=== PATIENT | female | born 1990 | race African-American/Black ===

== ENCOUNTER 2017-03-12 11:56 | Inpatient (IN) ==
[2017-03-12 13:05] LABS: Apearance,Urine CLOUDY (Clear); Bilirubin,Urine Negative (Negative); Blood, Urine Large mg/dL (Negative); Glucose,Urine (UA) Negative (Negative); Ketones,Urine 5 mg/dL (Negative); Mucus,Urine Many /LPF (Occasional); Nitrite,Urine Negative (Negative); Protein,Urine 100 MG/DL; RBC,Urine 5309 /HPF (0-4); Urine Color Amber (Yellow); Urine Specific Gravity 1.024 (1.001-1.035); WBC,Urine 33 /HPF (0-6)
[2017-03-12 13:41] LABS: Barbiturates Screen,Urine Negative (Negative); Benzodiazepines Screen,Urine Negative (Negative); Cannabinoid Screen,Urine Negative (Negative); Opiate Screen,Urine Negative (Negative); Phencyclidine Screen,Urine Negative (Negative)
[2017-03-12] MEDS ORDERED: LACTATED RINGERS 1,000 ML IV PRN (14:15)
[2017-03-12 14:36] LABS: Basophils % 0.2 % (0.0-0.8); Eosinophils # 0.4 10*3/uL (0.0-0.87); Eosinophils % 2.3 % (0.00-10.9); Hematocrit 27.2 VOL% (35.7-47.0); Hemoglobin 8.4 GM/DL (12.0-16.0); Immature Granulocytes % 1.9 %; Immature Granulocytes Absolute 0.31 #; Lymphocytes # 2.2 10*3/uL (1.4-4.0); Mean Corpuscular HGB Conc 30.9 GM/DL (32-36); Mean Corpuscular Hemoglobin 23 PG (27-34); Mean Corpuscular Volume 74.5 FL (87-102); Mean Platelet Volume 11.6 FL (9.6-12.0); Monocytes # 1.1 10*3/uL (0.11-0.8); Monocytes % 7.1 % (1.7-12.7); NRBC # 0.06 10*3/uL; Neutrophils # 11.9 10*3/uL (1.4-7.4); Neutrophils % 74.5 % (38.7-73.9); Platelet Count 311 T/CUMM (130-400); Red Blood Count 3.65 MC/CUMM (3.8-5.5); Red Cell Distribution Width 17.4 % (9.3-17.3)
[2017-03-12 14:59] LABS: Albumin 3.2 G/DL (3.4-5.0); Bilirubin,Total 0.4 MG/DL (0.2-1.0); Osmolality,Calculated 271.7 MOS/KG (273-304); Potassium 4.7 MMOL/L (3.5-5.1); Total Protein 7.3 G/DL (6.4-8.3); Uric Acid 4.1 MG/DL (2.6-6.0)
[2017-03-12] MEDS: BETAMETH SODIUM PHOS/ACETATE 30 MG/5 ML VIAL IM SCH (14:59)
[2017-03-12] MEDS: AMPICILLIN INJ 2,000 MG in SODIUM CHLORIDE 0.9% 100 ML IV SCH ×2 (15:00→20:30)
[2017-03-12] MEDS: LACTATED RINGERS 1,000 ML IV SCH ×2 (15:04→20:30)
--- NOTE | 2017-03-12 15:15 | Ultrasound Report ---
Exam: US OB >= 14 weeks fetus Date: 03/12/2017 2:27 PM Comparison: 08/29/2016 Indication: Limited care Technique:[Multiple transabdominal real-time scans were obtained of the pelvis. Color-flow scans obtained. Ultrasound images were captured and stored.] Findings: There is a single intrauterine fetus in cephalic presentation with a heart rate 141 BPM. The posterior placenta is not low-lying in position with cervical length of 26 mm. Maternal ovaries are not identified. No measurements were obtained in the cerebellum, cisterna magna, or ventricular atria. On the survey, no definite pathology is identified in the spine, heart, stomach, kidneys, bladder, cord insertion, face, and extremities. 3 vessel cord documented. Measurements obtained are as follows: BPD 33 weeks 5 days HC 33 weeks 4 days AC 34 weeks 5 days FL 32 weeks 6 days EFW 5 lbs. 2 oz. +/- 12 ounces GP 43% ABE 119 mm. Impression: Single intrauterine fetus in the cephalic presentation at 33 weeks 5 days +/- 2 weeks 3 days with EDC 04/25/2017. EDC of prior exam 04/23/2017. Cervical length of 26 mm. Follow-up scans may be helpful for further evaluation. PROCEDURE INTERPRETED AT [facility] DEPARTMENT OF RADIOLOGY Final Report Signed by: Dr. Carrie Thompson
[2017-03-13] MEDS: AMPICILLIN INJ 2,000 MG in SODIUM CHLORIDE 0.9% 100 ML IV SCH ×3 (02:36→14:00)
[2017-03-13] MEDS: LACTATED RINGERS 1,000 ML IV SCH ×2 (05:49→18:35)
[2017-03-13] MEDS ORDERED: SODIUM CHLORIDE 0.9% 250 ML IV PRN (13:40)
[2017-03-13] MEDS: BETAMETH SODIUM PHOS/ACETATE 30 MG/5 ML VIAL IM SCH (14:00)
[2017-03-13] MEDS ORDERED: MAGNESIUM HYDROXIDE SUSP 30 ML UDCUP PO ONE (14:05)
--- NOTE | 2017-03-13 14:42 | OB/GYN Progress Note ---
Assessment and Plan (1) Constipation Status: Acute Current Visit: Yes (2) Urinary tract infection Status: Acute Current Visit: Yes (3) Smoker Status: Acute Current Visit: Yes (4) Limited care Status: Acute Current Visit: Yes (5) History of marijuana use Status: Acute Current Visit: Yes (6) History of delivery Status: Acute Current Visit: Yes (7) Anemia Status: Acute Current Visit: Yes Qualifiers: Anemia type: iron deficiency (8) Tachycardia Status: Acute Current Visit: Yes (9) Cervical Change Status: Acute Current Visit: Yes (10) Inconsistent Care Status: Acute Current Visit: Yes (11) Second in less than year Status: Acute Current Visit: Yes 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 She received care @ [facility] with JACQUELIN Blackburn-BC @ 6 wks, 20 wks, and 30 wks. Records are limited, available, and reviewed- UDS noted positive for marijuana 11/2016, inconsistent care. She states she has not been getting any care because "I have been hurting and I don't have transportation". She states she came in because she has had contractions every 10-20 minutes that has been increasing in pressure and is "hurting is getting worse". She denies any vaginal bleeding, decreased movement, or spontaneous rupture of membranes. She states "inside of my vagina is swollen". Denies any vaginal sores, lesions, or other problems. PMHx: Asthma, no inhaler use since 2016 denies any asthma attacks for several years PSHx: Negative OB Hx: 05/25/08 of 41 wk male weighing 7 pounds 0 ounces without an epidural in [facility], [place]. Denies any problems in , labor, . 06/10/10 of 36 wks male weighing 6 pounds 0 ounces without an epidural in [facility], [place]. Received steroids, attempted to stop labor with IV meds. 10/17/12 of 39 wk female weighing 6 pounds 0 ounces without an epidural in [place], [place]. Denies any problems in labor, , or delivery. 01/28/14 of 15 wks SAB, no D&C, states passed all contents vaginally 12/16/15 @ 36 wks of male weighing 5 pounds 0 ounces with an epidudral @ [facility]. Steroids given, meds given to stop labor. 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 Denies any domestic violence, rape, or abuse. States smoked cigarettes and stopped smoking 2 weeks ago. Denies any alcohol or drug use recently. States all of her children lives with her Family Hx: Negative for HTN, DM, CVHD, and Cancer Allergies: NKDA ROS: Denies N/V/D, H/A, dizziness, muscle pain or tenderness, numbness or tingling to hands, feet or face, denies chest pain or shortness of breath Allergies: NKDA Meds: vitamins, states takes iron tablets daily and vitamin D OTC O: ultrasound reviewed. A: IUP @ 34.1 wks, Anemia, Category I FHR tracing, Inconsistent Care, H /O Marijuana use in , Smoker, Category 1 FHR tracing, H/O PTD x 2, Cervical Change, UTI, Second in 1 year, Maternal Tachycardia, Constipation P: Consulted Dr. Gwendolyn Britt- agreed with plan to infuse 2 units of PRBCs and DC home today. F/U with me in 1 week. Macrobid 100 mg po bid x 10 days. Procardia 10 mg po every 4 hours continue until 37 wks Ferrous Sulfate 325 mg po tid #90 with 4 refills Stool Softners every night OTC Milk of magnesia today and prn Bedrest, no sex, pelvic rest, nothing in vagina. Dly FKC, PTL, and bleeding precautions Appointment scheduled for 03/20/17 @ 1010 with me at [facility] Give second dose of Celestone today Increase fiber rich foods in diet Phone number to Medicaid transportation, , given to patient to schedule transportation for care Stressed importance for compliance with care and that social service consult will be made upon admission for delivery secondary to inconsistent pnc, h/o smoking, h/o marijuana use - verbalized understanding Questions answered to desired level of satisfaction Discussed smoking increases the risk of labor, cervical change, delivery, abruption, and demise- verbalized understanding Discussed marijuana increases the risk of addiction, neurological deficits/ hypersensitivity, demise, and other problems 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: Vital Signs Temp Pulse Resp BP Pulse Ox 03/13/17 08:00 98.8 F 115 H 20 131/78 98 03/13/17 04:00 98.1 F 104 H 18 113/59 03/13/17 00:00 97.8 F 99 H 18 109/59 03/12/17 20:00 97.7 F 109 H 20 133/80 General appearance: no acute distress - Antepartum / Post Antepartum Exam Cervix -Dilatation: 1 cm Effacement: 40% Station: -4 Rupture: Intact Presentation: vtx Heart Rate: 120s with spontaneous accels, no decelerations noted, Category FHR tracing [place]: irregular/ 40 sec/ mild Abdomen obstetrics: Present: bowel sounds normal Uterus exam: Present: enlarged (gravid, uterine tonus soft) Anus/Rectum: Present: normal perianal skin (large amount of stool noted with SVE ) - Head Head exam: Present: normal inspection - Respiratory Respiratory exam: Present: clear to auscultation bilaterally - GI/Abdominal GI/Abdominal exam: Present: normal bowel sounds - Extremities Exam Extremities exam: Present: normal inspection, normal capillary refill, full ROM - Neurological Exam Neurological exam: Present: alert, oriented X3 - Psychiatric Psychiatric exam: Present: normal affect, normal mood - Skin Skin exam: Present: normal color, warm, dry Results - Labs CBC & BMP: 03/12/17 14:26 03/12/17 14:26 Labs: Laboratory Results - last 72 hr 03/12/17 03/12/17 03/12/17 12:20 12:20 14:26 WBC 16.0 H RBC 3.65 L Hgb 8.4 L Hct 27.2 L MCV 74.5 L MCH 23 L MCHC 30.9 L RDW 17.4 H Plt Count 311 MPV 11.6 Neut % (Auto) 74.5 H Lymph % (Auto) 14.0 L [place] % (Auto) 7.1 Eos % (Auto) 2.3 Baso % (Auto) 0.2 Neut # (Auto) 11.9 H Lymph # (Auto) 2.2 [place] # (Auto) 1.1 H Eos # (Auto) 0.4 Baso # (Auto) 0.0 Immature Gran % 1.9 Nucleated RBC % 0.4 Immature Gran # 0.31 Nucleated RBCs # 0.06 Sodium Potassium Chloride Carbon Dioxide Anion Gap BUN Creatinine GFR Calculation BUN/Creatinine Ratio Glucose Calculated Osmolality Uric Acid Calcium Total Bilirubin AST ALT Alkaline Phosphatase Total Protein Albumin Globulin Albumin/Globulin Ratio Urine Color Juju Urine Appearance Cloudy Urine pH 7.0 Ur Specific [place] 1.024 Urine Protein 100 Urine Glucose (UA) Negative Urine Ketones 5 Urine Blood Large Urine Nitrate Negative Urine Bilirubin Negative Urine Urobilinogen 2.0 H Urine Leukocytes Small H Urine RBC 5309 Urine WBC 33 Urine Mucus Many Ur Culture Indicated? Results to follow Urine Opiates Screen Negative Ur Barbiturates Screen Negative Ur Phencyclidine Scrn Negative U Amphetamine/Methamph Negative U Benzodiazepines Scrn Negative U Cocaine Metab Screen Negative U Cannabinoids Screen Negative Treponema pallidum IgG Blood Type Antibody Screen Crossmatch Blood Bank Comment 03/12/17 03/12/17 03/12/17 14:26 14:26 14:26 WBC RBC Hgb Hct MCV MCH MCHC RDW Plt Count MPV Neut % (Auto) Lymph % (Auto) [place] % (Auto) Eos % (Auto) Baso % (Auto) Neut # (Auto) Lymph # (Auto) [place] # (Auto) Eos # (Auto) Baso # (Auto) Immature Gran % Nucleated RBC % Immature Gran # Nucleated RBCs # Sodium 138 Potassium 4.7 Chloride 107 Carbon Dioxide 20 L Anion Gap 15.7 H BUN 9 Creatinine 0.70 GFR Calculation 146 BUN/Creatinine Ratio 12.00 Glucose 70 L Calculated Osmolality 271.7 L Uric Acid 4.1 Calcium 9.0 Total Bilirubin 0.40 AST 20 ALT 10 L Alkaline Phosphatase 199 H Total Protein 7.3 Albumin 3.2 L Globulin 4.1 H Albumin/Globulin Ratio 0.7 L Urine Color Urine Appearance Urine pH Ur Specific [place] Urine Protein Urine Glucose (UA) Urine Ketones Urine Blood Urine Nitrate Urine Bilirubin Urine Urobilinogen Urine Leukocytes Urine RBC Urine WBC Urine Mucus Ur Culture Indicated? Urine Opiates Screen Ur Barbiturates Screen Ur Phencyclidine Scrn U Amphetamine/Methamph U Benzodiazepines Scrn U Cocaine Metab Screen U Cannabinoids Screen Treponema pallidum IgG Nonreactive Blood Type O POSITIVE Antibody Screen Negative Crossmatch Blood Bank Comment 03/13/17 13:45 WBC RBC Hgb Hct MCV MCH MCHC RDW Plt Count MPV Neut % (Auto) Lymph % (Auto) [place] % (Auto) Eos % (Auto) Baso % (Auto) Neut # (Auto) Lymph # (Auto) [place] # (Auto) Eos # (Auto) Baso # (Auto) Immature Gran % Nucleated RBC % Immature Gran # Nucleated RBCs # Sodium Potassium Chloride Carbon Dioxide Anion Gap BUN Creatinine GFR Calculation BUN/Creatinine Ratio Glucose Calculated Osmolality Uric Acid Calcium Total Bilirubin AST ALT Alkaline Phosphatase Total Protein Albumin Globulin Albumin/Globulin Ratio Urine Color Urine Appearance Urine pH Ur Specific [place] Urine Protein Urine Glucose (UA) Urine Ketones Urine Blood Urine Nitrate Urine Bilirubin Urine Urobilinogen Urine Leukocytes Urine RBC Urine WBC Urine Mucus Ur Culture Indicated? Urine Opiates Screen Ur Barbiturates Screen Ur Phencyclidine Scrn U Amphetamine/Methamph U Benzodiazepines Scrn U Cocaine Metab Screen U Cannabinoids Screen Treponema pallidum IgG Blood Type O POSITIVE Antibody Screen Cancelled Crossmatch See Detail Blood Bank Comment Cancelled - Diagnostic Findings Procedure: Ultrasound: report reviewed by me (EDC 04/25/17 @ 33.5 wks, cervical length 26 mm, cephalic, posterior placenta)
[2017-03-13 18:37] VITALS: BP 105/64
[2017-03-13 18:46] LABS: Basophils % 0.1 % (0.0-0.8); Hematocrit 25.2 VOL% (35.7-47.0); Hemoglobin 7.9 GM/DL (12.0-16.0); Immature Granulocytes % 4.3 %; Immature Granulocytes Absolute 0.94 #; Lymphocytes # 1.4 10*3/uL (1.4-4.0); Lymphocytes % 6.6 % (21.3-54.2); Mean Corpuscular HGB Conc 31.3 GM/DL (32-36); Mean Corpuscular Hemoglobin 24 PG (27-34); Mean Corpuscular Volume 76.8 FL (87-102); Mean Platelet Volume 10.8 FL (9.6-12.0); Monocytes # 0.7 10*3/uL (0.11-0.8); Monocytes % 3.1 % (1.7-12.7); NRBC # 0.05 10*3/uL; Neutrophils # 18.8 10*3/uL (1.4-7.4); Neutrophils % 85.9 % (38.7-73.9); Platelet Count 244 T/CUMM (130-400); Red Blood Count 3.28 MC/CUMM (3.8-5.5); Red Cell Distribution Width 17.3 % (9.3-17.3); White Blood Count 21.9 T/CUMM (4-12)
[2017-03-13 19:12] LABS: Lymphocytes 5 % (20-55); Platelet Estimate Adequate; Segmented Neutrophils 93 % (50-85); Total Cells Counted 100
[2017-03-13 19:13] LABS: Anisocytosis 1+; Microcytosis 1+; Ovalocytes Slight; Poikilocytosis Slight
[2017-03-13] MEDS ORDERED: NIFEdipine 10 MG CAPSULE PO ONE (19:41)
== END 2017-03-13 22:27 | disposition home or self-care (01) | DRG 563 ==
LOC: N.LDOUT 11:56 → N.LD 12:04 → MERGE 14:15
PROVIDERS: ADMIT Obstetrics & Gynecology; ATTEND Obstetrics & Gynecology

== ENCOUNTER 2017-04-05 15:01 | Inpatient (IN) ==
[2017-04-05] MEDS ORDERED: ONDANSETRON 4 MG/2 ML VIAL IV PRN (15:20)
[2017-04-05] MEDS ORDERED: LACTATED RINGERS 1,000 ML IV SCH (15:30)
[2017-04-05] MEDS ORDERED: OXYTOCIN/LR 20 UNIT/1,000 ML BAG IV SCH (15:30)
[2017-04-05] MEDS ORDERED: AMPICILLIN INJ 2,000 MG in SODIUM CHLORIDE 0.9% 100 ML IV ONE (15:41)
[2017-04-05 15:55] LABS: Basophils % 0.2 % (0.0-0.8); Eosinophils # 0.4 10*3/uL (0.0-0.87); Eosinophils % 2.4 % (0.00-10.9); Hematocrit 28.7 VOL% (35.7-47.0); Hemoglobin 9.2 GM/DL (12.0-16.0); Immature Granulocytes Absolute 0.47 #; Lymphocytes # 2.7 10*3/uL (1.4-4.0); Lymphocytes % 16.8 % (21.3-54.2); Mean Corpuscular HGB Conc 32.1 GM/DL (32-36); Mean Corpuscular Hemoglobin 24 PG (27-34); Mean Corpuscular Volume 75.3 FL (87-102); Mean Platelet Volume 12.1 FL (9.6-12.0); Monocytes # 1.2 10*3/uL (0.11-0.8); Monocytes % 7.5 % (1.7-12.7); NRBC # 0.02 10*3/uL; Neutrophils # 11.1 10*3/uL (1.4-7.4); Neutrophils % 70.1 % (38.7-73.9); Platelet Count 203 T/CUMM (130-400); Red Blood Count 3.81 MC/CUMM (3.8-5.5); Red Cell Distribution Width 19.1 % (9.3-17.3); White Blood Count 15.8 T/CUMM (4-12)
[2017-04-05] MEDS ORDERED: PROMETHAZINE 25 MG/1 ML VIAL IM ONE (17:00)
[2017-04-05] MEDS ORDERED: LACTATED RINGERS 1,000 ML IV ONE (17:00)
[2017-04-05] MEDS ORDERED: ePHEDrine 50 MG/ML AMP IV PRN (17:00)
[2017-04-05] MEDS ORDERED: diphenhydrAMINE 50 MG/1 ML VIAL IV PRN ×2 (17:00)
[2017-04-05] MEDS ORDERED: hydrOXYzine HCL 25 MG/1 ML VIAL IM PRN (17:00)
[2017-04-05] MEDS ORDERED: CITRIC ACID/SODIUM CITRATE 30 ML UDCUP PO ONE (17:00)
[2017-04-05] MEDS ORDERED: fentaNYL 2 MCG/ROPIV 0.2% EPID 150 ML EPIDURAL SCH (17:00)
[2017-04-05] MEDS ORDERED: ONDANSETRON 4 MG/2 ML VIAL IV ONE (17:00)
[2017-04-05] MEDS ORDERED: FAMOTIDINE 20 MG/2 ML VIAL IV ONE (17:00)
[2017-04-05 18:07] LABS: Apearance,Urine CLEAR (Clear); Bacteria,Urine Occasional /HPF (Few); Bilirubin,Urine Negative (Negative); Blood, Urine Small mg/dL (Negative); Calcium Oxalate Crystals,Urine Occasional /HPF (Few); Glucose,Urine (UA) Negative (Negative); Ketones,Urine Negative (Negative); Mucus,Urine Occasional /LPF (Occasional); Nitrite,Urine Negative (Negative); Protein,Urine Negative; RBC,Urine 20 /HPF (0-4); Squamous Epithelial Cell,Urine Occasional /HPF (0-10); Urine Color Yellow (Yellow); Urine Specific Gravity 1.016 (1.001-1.035); WBC,Urine 2 /HPF (0-6)
[2017-04-05 18:16] LABS: Barbiturates Screen,Urine Negative (Negative); Benzodiazepines Screen,Urine Negative (Negative); Cannabinoid Screen,Urine Negative (Negative); Opiate Screen,Urine Negative (Negative); Phencyclidine Screen,Urine Negative (Negative)
--- NOTE | 2017-04-05 18:17 | OB/GYN History & Physical ---
History of Present Illness Chief complaint: "My water broke". History of present illness: Patient is a 26-year-old 6 para 2214 that presented with spontaneous rupture of membranes earlier today. She is 37.3 weeks gestation today. She receives care at [facility] with Kate Beverly women's health nurse practitioner. She had a total of 3 visits and 2 ultrasounds. During the course of her she has very limited care with late onset care, initial visit with visit 6 weeks gestation, subsequent visits consisted to follow at 20.2 weeks and 30.1 weeks gestation. She did have severe anemia early in the , her second in 1 year, on she was treated with Flagyl for trichomonas.. Her records are current, reviewed , and up to date. Patient is presently sitting in high Bonilla's position in the process of receiving her epidural. Patient indicated that she was feeling pressure while receiving her epidural at 1752, patient was placed on her right lateral side and noted to be complete and +3 station. 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 This is her second in 1 year Genetic Hx: Noncontributory Social Hx: Single, denies alcohol, tobacco, or drug use, states children lives with her, unemployed no apparent impairments noted Family Hx: Diabetes, cancer noted with brother mother and sisters 2 Medications: None Labs: Blood type and RH O+, antibody screen negative, Rubella not available, HIV negative, HBsAG negative, GC negative, Chlamydia negative, Diabetic Screen 116, GBS negative, Other history of positive marijuana screen in noted on 12/06/2016 A: IUP @ 37.3 wks, SROM, Second stage of labor, H/O Marijuana use, H/O Inconsistent PNC, Second in 1 year P: Begin pushing, anticipate vaginal delivery Home Medications Medication Instructions Recorded Confirmed Type Multivitamin () [ 1 tablet PO DAILY 03/12/17 04/05/17 History Vitamin] Allergies Allergy/AdvReac Type Severity Reaction Status Date / Time No Known Allergies Allergy Verified 11/01/15 21:06 12 point system: reviewed and no additional remarkable complaints except as stated Medical,Surgical,& Family Hx - Medical History Respiratory: History of: Asthma (last used inhaler last month) Other: History of: Miscellaneous Medical Problems (History of gonorrhea, chlamydia, and Trichomonas) - Surgical History Surgical History: noncontributory Cardiac Surgeries: Patient Denies: Cardiac Catheterization Abdominal Surgeries: Patient denies: Abdominal Surgery - Family History Family History: Reports;: Family Cancer (brother, mother, both sisters), Family Diabetes Denies;: Family Anesthesia Reaction, Family Heart Disease, Family Hypertension, Family Psychiatric Problems, Family Stroke - Social History Smoking Status: Never smoker Frequency of Alcohol Use: None Type of Drug Use: Marijuana Marital Status: Single Lives With:: Children Functional capacity: independent ambulation 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 - Constitutional Vitals: Vital Signs Temp Pulse Resp BP Pulse Ox 04/05/17 16:00 97.8 F 105 H 18 134/67 98 General appearance: normal weight - Antepartum / Post Antepartum Exam Cervix - Dilatation: Complete Effacement: 100% Station: +3 Rupture: Ruptured Presentation: Vertex Breast: bilateral: normal Abdomen obstetrics: Present: bowel sounds normal Uterus exam: Present: enlarged (Soft with uterine tone is soft between contractions, gravid) Adnexa: bilateral: normal Anus/Rectum: Present: normal perianal skin - Head Head exam: Present: normal inspection - Respiratory Respiratory exam: Present: clear to auscultation bilaterally - Cardiovascular Cardiovascular exam: Present: regular rate and rhythm - GI/Abdominal GI/Abdominal exam: Present: normal bowel sounds - Extremities Exam Extremities exam: Present: normal inspection, normal capillary refill, full ROM - Back Exam Back exam: Present: normal inspection - Neurological Exam Neurological exam: Present: alert, oriented X3 - Psychiatric Psychiatric exam: Present: normal affect, normal mood - Skin Skin exam: Present: normal color, warm Assessment and Plan (1) Spontaneous rupture of amniotic membranes Status: Acute Current Visit: Yes (2) Active labor Status: Acute Current Visit: Yes (3) History of marijuana use Status: Acute Assessment and plan: Urine drug screen ordered Current Visit: Yes (4) Inconsistent care Status: Acute Current Visit: Yes (5) Second in less than 1 year Status: Acute Current Visit: Yes Results - Labs CBC & BMP: 04/05/17 15:42 Labs: Laboratory Tests 04/05/17 04/05/17 04/05/17 15:00 15:42 15:42 WBC 15.8 H RBC 3.81 Hgb 9.2 L Hct 28.7 L MCV 75.3 L MCH 24 L MCHC 32.1 RDW 19.1 H Plt Count 203 MPV 12.1 H Neut % (Auto) 70.1 Lymph % (Auto) 16.8 L [place] % (Auto) 7.5 Eos % (Auto) 2.4 Baso % (Auto) 0.2 Neut # (Auto) 11.1 H Lymph # (Auto) 2.7 [place] # (Auto) 1.2 H Eos # (Auto) 0.4 Baso # (Auto) 0.0 Immature Gran % 3.0 Nucleated RBC % 0.1 Immature Gran # 0.47 Nucleated RBCs # 0.02 Urine Color Urine Appearance Urine pH Ur Specific [place] Urine Protein Urine Glucose (UA) Urine Ketones Urine Blood Urine Nitrate Urine Bilirubin Urine Urobilinogen Urine Leukocytes Urine RBC Urine WBC Ur Squamous Epith Cells Calcium Oxalate Crystal Urine Bacteria Urine Mucus Ur Culture Indicated? Urine Opiates Screen Ur Barbiturates Screen Ur Phencyclidine Scrn U Amphetamine/Methamph U Benzodiazepines Scrn U Cocaine Metab Screen U Cannabinoids Screen Rubella IgG Antibody 210.2 Blood Type O POSITIVE Antibody Screen Negative 04/05/17 04/05/17 17:53 17:53 WBC RBC Hgb Hct MCV MCH MCHC RDW Plt Count MPV Neut % (Auto) Lymph % (Auto) [place] % (Auto) Eos % (Auto) Baso % (Auto) Neut # (Auto) Lymph # (Auto) [place] # (Auto) Eos # (Auto) Baso # (Auto) Immature Gran % Nucleated RBC % Immature Gran # Nucleated RBCs # Urine Color Yellow Urine Appearance Clear Urine pH 6.0 Ur Specific [place] 1.016 Urine Protein Negative Urine Glucose (UA) Negative Urine Ketones Negative Urine Blood Small Urine Nitrate Negative Urine Bilirubin Negative Urine Urobilinogen 2.0 H Urine Leukocytes Negative Urine RBC 20 Urine WBC 2 Ur Squamous Epith Cells Occasional Calcium Oxalate Crystal Occasional Urine Bacteria Occasional Urine Mucus Occasional Ur Culture Indicated? Not indicated Urine Opiates Screen Negative Ur Barbiturates Screen Negative Ur Phencyclidine Scrn Negative U Amphetamine/Methamph Negative U Benzodiazepines Scrn Negative U Cocaine Metab Screen Negative U Cannabinoids Screen Negative Rubella IgG Antibody Blood Type Antibody Screen Quality Measures - VTE Contraindication to Pharmacological VTE Prophylaxis: Continuous Epidural Infusion
--- NOTE | 2017-04-05 18:31 | Operative Note ---
Date of procedure: 04/05/17 Pre-op diagnosis: IUP at 37.3 weeks gestation, SROM, H/O Marijuana use Post-op diagnosis: other (Normal spontaneous vaginal delivery on the maternal assist) Procedure: Patient received in high Bonilla's position in the process of receiving an epidural when she started screaming "I need to push! This baby is coming out!" . Patient was draped and prepped. At 1753, head delivered in MELINA position. Anterior then posterior shoulders were delivered easily without difficulty. delivered in usual fashion and secured. Mouth and nose bulb suctioned. Cord double clamped and cut without difficulty. At 1758, spontaneous delivery of placenta via Alexandro position, with 3 vessel cord noted, normal cord insertion, with moderate calcifications. Hemostasis maintained with fundal massage and Pitocin 20 units in 1000 cc of lactated Ringer's. Perineum inspected with superficial vaginal laceration noted without any repair, no bleeding noted, stable. Male with Apgars 8 and 9 weighing 7 lbs. 2 oz. at 3240 grams. Mother and baby are stable. Mother desires to bottle feed. Anesthesia: none Surgeon / Physician: Marci Parish Estimated blood loss: other (150 cc) Specimens: other (Placenta to pathology secondary to moderate calcifications noted, inconsistent care, urine drug screen positive for marijuana in ) Condition: stable Disposition: floor Results - Labs CBC & BMP: 04/05/17 15:42 Discharge Plan - Discharge Medications No Action Multivitamin () [ Vitamin] 1 tablet PO DAILY - Follow Up or Referral - Forms/Instructions
[2017-04-05] MEDS ORDERED: oxyCODONE/ACETAMINOPHEN 5-325 MG TABLET PO PRN (18:33)
[2017-04-05] MEDS ORDERED: HYDROCORTISONE 2.5% RECTAL CREAM 30 GM TUBE TOP PRN (18:33)
[2017-04-05] MEDS ORDERED: RHO(D) IMMUNE GLOBULIN 300 MCG SYRINGE IM ONE (18:33)
[2017-04-05] MEDS ORDERED: BISACODYL 10 MG SUPP RECTAL PRN (18:33)
[2017-04-05] MEDS ORDERED: OXYTOCIN/LR 20 UNIT/1,000 ML BAG IV ONE (18:33)
[2017-04-05] MEDS ORDERED: MEASLES/MUMPS/RUBELLA VACCINE 0.5 ML VIAL SUBCUT ONE (18:33)
[2017-04-05] MEDS ORDERED: LANOLIN 50% CREAM 0.3 OZ TUBE TOP PRN (18:33)
[2017-04-05] MEDS ORDERED: BENZOCAINE 20%/MENTHOL 0.5% SPRAY 56 GM CAN TOP PRN (18:33)
[2017-04-05] MEDS ORDERED: DIPH/TET/ACEL PERT BOOSTER VACCINE 0.5 ML VIAL IM ONE (18:33)
[2017-04-05] MEDS ORDERED: ACETAMINOPHEN 325 MG TABLET PO PRN (18:33)
[2017-04-05] MEDS ORDERED: WITCH HAZEL PADS 100/JAR TOP PRN (18:33)
[2017-04-05] MEDS ORDERED: IBUPROFEN 800 MG TABLET PO ONE (18:52)
[2017-04-05] MEDS: FERROUS SULFATE 325 MG TABLET PO SCH (20:00)
[2017-04-05] MEDS: oxyCODONE/ACETAMINOPHEN 5-325 MG TABLET PO PRN (20:00)
[2017-04-05] MEDS ORDERED: AMPICILLIN INJ 1,000 MG in SODIUM CHLORIDE 0.9% 100 ML IV SCH (20:00)
[2017-04-05] MEDS: DOCUSATE SODIUM 100 MG CAPSULE PO SCH (22:20)
[2017-04-06 05:56] LABS: Basophils % 0.1 % (0.0-0.8); Eosinophils # 0.2 10*3/uL (0.0-0.87); Eosinophils % 1.4 % (0.00-10.9); Hematocrit 26.6 VOL% (35.7-47.0); Hemoglobin 8.5 GM/DL (12.0-16.0); Immature Granulocytes % 1.7 %; Immature Granulocytes Absolute 0.27 #; Lymphocytes # 1.9 10*3/uL (1.4-4.0); Lymphocytes % 11.5 % (21.3-54.2); Mean Corpuscular Hemoglobin 24 PG (27-34); Mean Corpuscular Volume 74.9 FL (87-102); Mean Platelet Volume 12.2 FL (9.6-12.0); Monocytes # 1.1 10*3/uL (0.11-0.8); Monocytes % 6.5 % (1.7-12.7); NRBC # 0.02 10*3/uL; Neutrophils # 12.8 10*3/uL (1.4-7.4); Neutrophils % 78.8 % (38.7-73.9); Platelet Count 199 T/CUMM (130-400); Red Blood Count 3.55 MC/CUMM (3.8-5.5); Red Cell Distribution Width 18.8 % (9.3-17.3); White Blood Count 16.2 T/CUMM (4-12)
[2017-04-06] MEDS: oxyCODONE/ACETAMINOPHEN 5-325 MG TABLET PO PRN ×3 (06:25→21:09)
[2017-04-06] MEDS: IBUPROFEN 800 MG TABLET PO PRN ×2 (06:25→21:09)
[2017-04-06] MEDS: DOCUSATE SODIUM 100 MG CAPSULE PO SCH ×2 (09:05→21:09)
[2017-04-06] MEDS: FERROUS SULFATE 325 MG TABLET PO SCH ×3 (09:05→21:09)
[2017-04-06] MEDS ORDERED: BENZOCAINE 20%/MENTHOL 0.5% SPRAY 56 GM CAN TOP PRN (21:24)
[2017-04-07] MEDS: oxyCODONE/ACETAMINOPHEN 5-325 MG TABLET PO PRN (05:00)
[2017-04-07] MEDS: IBUPROFEN 800 MG TABLET PO PRN (05:00)
[2017-04-07 07:59] VITALS: BP 100/70
[2017-04-07] MEDS: FERROUS SULFATE 325 MG TABLET PO SCH (08:25)
[2017-04-07] MEDS: DOCUSATE SODIUM 100 MG CAPSULE PO SCH (08:25)
--- NOTE | 2017-04-09 12:18 | Pathology Report from [facility] ---
[facility] ACCESSION # : [id number] PATIENT NAME : Marc Simon ORDERING DR : ASHLY HENNING DO CLINICAL HX: IUP @ 37.2 wks, SROM, limited care POST-OP DX: Same SPECIMEN INFO: Placenta GROSS DESCRIPTION: Received fresh labeled MARC SIMON is a 483 gm placenta measuring 18.0 x 15.5 x 3.0 cm. The membranes are pink dougherty and translucent. The umbilical cord measures 60.0 cm, contains three vessels and is centrally inserted. The surface is blue butterfield with scattered areas of subchorionic fibrin noted. The maternal surface displays mildly disrupted red butterfield cotyledons with a 4.0 x 1.8 cm possible infarction noted. Sections submitted A- membranes and cord, B- and maternal surfaces. DIAGNOSIS FOR MARC SIMON: PLACENTA, MEMBRANES, UMBILICAL CORD: Focal placental infarction with dystrophic calcification, blood and fibrin clots. Tri-vessel umbilical cord. Membranes with acute chorioamnionitis. COLLECTED DATE: 04/06/2017 [facility] REPORT DATE: 04/09/2017 ELECTRONICALLY SIGNED BY: Lisbeth Nayak M.D. 04/09/2017 - 10:32:13 GRAEME
--- NOTE | 2017-04-23 21:59 | Discharge Summary ---
Hospital Course - Hospital Course Hospital Course: Admitted in labor, delivered without difficulty and no complications. Specialty Discharge - Follow Up or Referrals Follow up with: Marci Parish CFNP [Advanced Practice Nurse] - (Call the office Sunday and schedule a follow up appointment to see Marci Parish) Discharge Plan - Discharge Data Disposition: Disch To Home/Self Care Condition at Discharge: Stable Discharge Diet: advance to your usual diet Activity: resume usual activities as tolerated Hygiene: may shower Driving: not until seen by doctor - Discharge Medications No Action Multivitamin () [ Vitamin] 1 tablet PO DAILY - Follow Up or Referral Follow Up: Marci Parish CFNP [Advanced Practice Nurse] - (Call the office Sunday and schedule a follow up appointment to see Marci Parish) - Forms/Instructions Instructions: Iron Supplements (By mouth), Acetaminophen/Codeine (By mouth), Ibuprofen (By mouth), Vaginal Delivery (DC), Bleeding (DC) Exam - Constitutional General appearance: no acute distress - Respiratory Respiratory exam: Present: clear to auscultation bilaterally - Cardiovascular Cardiovascular exam: Present: regular rate and rhythm - GI/Abdominal GI/Abdominal exam: Present: soft. Absent: tenderness - Extremities Exam Extremities exam: Present: normal inspection - Back Exam Back exam: Present: normal inspection - Neurological Exam Neurological exam: Present: alert, oriented X3 - Psychiatric Psychiatric exam: Present: normal affect, normal mood - Skin Skin exam: Present: normal color, warm DS: Provider Date of admission: 04/05/17 15:20 Primary care physician: . No PCP Attending physician on admission: Bradley Reyes DO Consults: 04/05/17 15:20 Consult to Anesthesiology [CONS] Routine Consulting Provider: Reason for Anesthesiology: Epidural Consult Comment: Epidural for pain managment 04/05/17 18:34 Consult to Development Chemist [CONS] Routine Consult Development Chemist: Breast Feeding Discharging clinician: Bradley Reyes DO Expected date of discharge: 04/07/17
== END 2017-04-07 12:05 | disposition home or self-care (01) | DRG 560 ==
LOC: N.LDOUT 15:01 → N.LD 15:04 → N.OB 20:00
PROVIDERS: ADMIT Obstetrics & Gynecology; ATTEND Obstetrics & Gynecology